=== PATIENT | male | born 1965 | race Caucasian/White ===

== ENCOUNTER 2019-01-15 18:06 | Emergency (ER) | payer SELFPAY ==
--- NOTE | 2019-01-15 18:10 | ED ---
Back Pain - HPI Summary HPI Summary: 53 yo male presents to [facility] [place] ED via EMS with complaints of low back pain. He tells me that he has a history of low back pain with an injury many years ago at work. Last night he went he to pull out groceries from the back seat of his car and felt a pull in his lower back with pain. Pain persisted through the evening. He took ibuprofen and went to bed. This morning he felt better. 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 Pain better with lying still and worse with movement. He has not taken anything today for his discomfort. No injury or fall today. Denies fever, recent illness, numbness, tingling, saddle anesthesia, loss of bowel/bladder control, or dysuria. No abdominal pain, n/v. - History of Current Complaint Stated Complaint: BACK PAIN PER EMS Time Seen by Provider: 01/15/19 18:07 Hx Obtained From: Patient Onset/Duration: Sudden Onset Timing: Constant Severity Initially: Severe Severity Currently: Severe Pain Intensity: 10 Pain Scale Used: 0-10 Numeric Aggravating Symptom(s): Movement Alleviating Symptom(s): Rest, Position - Allergies/Home Medications Allergies/Adverse Reactions: Allergies Allergy/AdvReac Type Severity Reaction Status Date / Time No Known Allergies Allergy Verified 01/15/19 18:13 PMH/Surg Hx/FS Hx/Imm Hx Endocrine/Hematology History: Denies: Hx Blood Disorders, Hx Diabetes, Hx Thyroid Disease Cardiovascular History: Denies: Hx Angina, Hx Atrial Fibrillation, Hx Cardiac Arrest, Hx Coronary Artery Disease Respiratory History: Denies: Hx Asthma, Hx Chronic Obstructive Pulmonary Disease (COPD) GI History: Denies: Hx Gastroesophageal Reflux Disease, Hx Gastrointestinal Bleed Musculoskeletal History: Reports: Hx Back Problems Neurological History: Denies: Hx CVA, Hx Migraine Psychiatric History: Denies: Hx Anxiety, Hx Depression - Family History Known Family History: Positive: Non-Contributory - Social History Occupation: Employed Full-time Lives: With Family Alcohol Use: Occasionally Substance Use Type: Reports: None Smoking Status (MU): Light Every Day Tobacco Smoker Review of Systems Constitutional: Negative Eyes: Negative ENT: Negative Cardiovascular: Negative Respiratory: Negative Gastrointestinal: Negative Genitourinary: Negative Musculoskeletal: Other - Low back pain Skin: Negative Neurological: Negative Psychological: Normal All Other Systems Reviewed And Are Negative: Yes Physical Exam - Summary Physical Exam Summary: GENERAL: NAD. WDWN. No pain distress. SKIN: No rashes, sores, lesions, or open wounds. NECK: Supple. FROM. Nontender. No lymphadenopathy. CHEST: CTAB. No r/r/w. No accessory muscle use. Breathing comfortably and in no distress. CV: RRR. Without m/r/g. Pulses intact. Cap refill <2seconds MSK: TTP over lumbar paraspinal muscles. Pain with flexion and extension of spine. Positive SLR b/l for low back pain without radiation. Strength 5/5 B/L LEs including dorsiflexion and plantar flexion. FROM B/L LEs, but has pain during flexion of hip and knee. No edema. NEURO: Alert. Sensations intact B/L LEs L3-S1. Reflexes intact PSYCH: Age appropriate behavior. Triage Information Reviewed: Yes Vital Signs On Initial Exam: Vital Signs: Temp Pulse Resp BP Pulse Ox 97.5 F 57 18 136/72 98 01/15/19 18:09 01/15/19 18:09 01/15/19 18:09 01/15/19 18:09 01/15/19 18:09 Vital Signs Reviewed: Yes Re-Evaluation - Re-Evaluation First Eval Re-Evaluation Time: 20:23 Change: Improved Comment: Pain improved from 10/10 to 8/10 with toradol. Improved further to 6/ 10 with morphine and dexamethasone Back Pain Course/Dx - Course Course Of Treatment: iSTOP: Reference #: [id number]. Suspect muscle spasm vs disc pathology. Currently he has no signs of cauda equina and has no numbness or tingling. XR: wet read negative for acute process. In the ED he was given toradol, dexamethasone, flexeril, and morphine for his discomfort with good improvement of his pain. I discussed the results of his XR with him and his family member with him. He was agreeable to discharge at this time, but upon trying to ambulate had increased pain with spasm and required dilaudid 2mg po - had great relief with this. Will rx for norco and flexeril and have him rest and apply heat to his back to decrease pain and spasm. - Diagnoses Provider Diagnoses: Low back strain Discharge - Sign-Out/Discharge Documenting (check all that apply): Patient Departure Patient Received Moderate/Deep Sedation with Procedure: No - Discharge Plan Condition: Stable Disposition: HOME Prescriptions: Cyclobenzaprine TAB* [Flexeril 10 MG TAB*] 10 mg PO TID PRN #21 tab PRN Reason: Spasms HYDROcodone/ACETAMIN 5-325 MG* [[place] 5-325 TAB*] 1 tab PO Q8H PRN #9 tab MDD 3 PRN Reason: Pain Patient Education Materials: Acute Low Back Pain (ED), Muscle Spasm (ED), Lower Back Exercises (ED) Referrals: No Primary Care Phys,NOPCP [Primary Care Provider] - [facility] [place] PHYSICIAN REFERRAL [Outside] - 4 Days Care [facility] [Outside] - 4 Days Additional Instructions: If you develop a fever, shortness of breath, chest pain, new or worsening symptoms - please call your PCP or go to the ED immediately. Your blood pressure was high at todays visit. Please see your primary provider within 4 weeks for recheck and re-evaluation. 1) Rest and apply heat to your lower back to decrease pain and spasm 2) Take the medications as directed for discomfort 3) Please call the physician referral center at the number below to schedule an appointment with a primary doctor within 5 days for a recheck of your back pain - Billing Disposition and Condition Condition: STABLE Disposition: Home
[2019-01-15] MEDS ORDERED: Ketorolac INJ* 30 MG/ML 1 ML VIAL IV ONE (18:19)
[2019-01-15] MEDS ORDERED: Morphine 4 MG/ML VIAL (1 ml) 4 MG/ML VIAL IV ONE ×2 (19:31→20:57)
[2019-01-15] MEDS ORDERED: Dexamethasone IV* 4 MG/ML 1 ML (4 MG) IV SLOW PU ONE (19:46)
[2019-01-15] MEDS ORDERED: Cyclobenzaprine TAB* 10 MG PO ONE (20:22)
[2019-01-15] MEDS ORDERED: HYDROmorphone TAB* 2 MG PO ONE (21:26)
[2019-01-15 21:41] VITALS: BP 128/76
== END 2019-01-15 21:40 | disposition home or self-care (01) ==
LOC: ED 18:06
DX: S39.012A Strain of muscle, fascia and tendon of lower back, initial encounter (principal); X50.9XXA Other and unspecified overexertion or strenuous movements or postures, initial encounter; Y92.810 Car as the place of occurrence of the external cause; F17.200 Nicotine dependence, unspecified, uncomplicated
CPT/HCPCS: 72110; 96374; 96375; 96376; 99282; A9270-GY; J1100; J1885; J2270